=== PATIENT | female | born 1990 | race Caucasian/White ===

== ENCOUNTER 2023-03-06 21:45 | Emergency (ER) | payer MEDICAID ==
[~2023-03-06] VITALS: Ht 170.2 cm; Wt 145.1 kg
[2023-03-06 22:20] VITALS: BP_SYST 151; PULSE 68; RESP 18; TEMP 97.7; O2SAT 99
[2023-03-06] MEDS ORDERED: SULF1TAB48 PO (22:29)
[2023-03-06] MEDS ORDERED: SULFAMETHOXAZOLE/TRIMETHOPR DS 1 TABLET PO ONE (22:30)
[2023-03-06] MEDS ORDERED: IBUPROFEN 600 MG TABLET PO ONE (22:30)
[2023-03-06] MEDS ORDERED: IBUP-1969 PO (22:31)
[2023-03-06 22:54] VITALS: BP_SYST 134; PULSE 68; RESP 18; TEMP 97.7; O2SAT 99
== END 2023-03-06 22:35 | disposition home or self-care (01) ==
LOC: SED 21:45
DX: L02.811 Cutaneous abscess of head [any part, except face] (principal); R22.1 Localized swelling, mass and lump, neck; I10 Essential (primary) hypertension; Z79.899 Other long term (current) drug therapy
CPT/HCPCS: 99283